=== PATIENT | male | born 1995 | race Caucasian/White ===

== ENCOUNTER 2021-10-30 13:32 | Emergency (ER) | payer MEDICAID, SELFPAY ==
[2021-10-30 13:40] VITALS: BP 114/70; PULSE 54; TEMP 37.2; O2SAT 98; BMI 24.4
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
--- NOTE | 2021-10-30 14:13 | ED.NURSE ---
mittal dressed with bacitracin, telfa and amaury. did use coban and bacitracin on left side of face.
== END 2021-10-30 14:12 | disposition home or self-care (01) ==
LOC: ED 14:08
PROVIDERS: Emergency Provider Family Medicine; PCP Family Medicine
DX: T20.26XA Burn of second degree of forehead and cheek, initial encounter (principal); T22.112A Burn of first degree of left forearm, initial encounter; X08.8XXA Exposure to other specified smoke, fire and flames, initial encounter
CPT/HCPCS: 99283